=== PATIENT | male | born 1955 | race Caucasian/White ===

== ENCOUNTER 2017-09-13 07:28 | Day surgery (SDC) | payer BC ==
[2017-09-08 11:54] VITALS: BMI 31.7
[2017-09-13] MEDS ORDERED: PROPOFOL 20 ML ONE ×3 (07:30→09:13)
[2017-09-13] MEDS ORDERED: LIDOCAINE HCL/PF 2% SDV 5ML VIAL ONE (07:30)
[2017-09-13 09:45] VITALS: TEMP 98.3
[2017-09-13 09:56] VITALS: BP 121/70; PULSE 74
--- NOTE | 2017-09-14 15:35 | PATH ---
Surgical Pathology Report Patient Name: PEAM RICHARDSON [facility]. Rec. #: [id number] /Age/Gender: 1955 (Age: 62) / M Account: [id number] Location: [facility]-ENDOSCOPY Taken: 09/13/2017 Received: 09/13/2017 Reported: 09/14/2017 Physicians: Caio Cotto M.D. Specimen(s) Received A: BX DUODENUM B: BX ANTRUM Clinical History Preoperative diagnosis: GERD, rule out colon cancer Postoperative diagnoses: Rule out celiac disease, mild gastritis, rule out H. Pylori Final Diagnosis A. DUODENUM, BIOPSY: SMALL BOWEL MUCOSA WITH MILD INCREASE IN INTRAEPITHELIAL LYMPHOCYTES. SEE COMMENT. B. STOMACH, ANTRUM, BIOPSY: GASTRIC ANTRAL MUCOSA WITH MODERATE CHRONIC GASTRITIS. IMMUNOHISTOCHEMICAL STAIN FOR H. PYLORI IS NEGATIVE. Comment: There is mild increase in intraepithelial lymphocytes with preservation of villous architecture. These findings are non-specific, but may be seen in Gluten sensitive enteropathy (Celiac sprue). Suggest clinical and serologic correlation, as clinically warranted. Electronically Signed Geovanna Gomez M.D. Gross Description A. Received in formalin, labeled "duodenum" are 2 ghotra, irregular portions of soft tissue averaging 0.3 cm. in greatest dimension. The specimens are submitted in toto in one cassette. B. Received in formalin, labeled "antrum" are 2 ghotra, irregular portions of soft tissue averaging 0.6 cm. in greatest dimension. The specimens are submitted in toto in one cassette. /09/13/2017 saudi09/13/2017
== END 2017-09-13 09:58 | disposition home or self-care (01) ==
LOC: FASU-ENDO 07:28
PROVIDERS: ATTEND Internal Medicine Gastroenterology
PROC: 0DB68ZX Excision of Stomach, Via Natural or Artificial Opening Endoscopic, Diagnostic (ICD-10-PCS; 2017-09-13)
PROC: 0DJD8ZZ Inspection of Lower Intestinal Tract, Via Natural or Artificial Opening Endoscopic (ICD-10-PCS; principal; 2017-09-13 09:04)
PROC: 0DB98ZX Excision of Duodenum, Via Natural or Artificial Opening Endoscopic, Diagnostic (ICD-10-PCS; 2017-09-13 09:04)
DX: Z12.11 Encounter for screening for malignant neoplasm of colon (principal); K29.50 Unspecified chronic gastritis without bleeding; K57.10 Diverticulosis of small intestine without perforation or abscess without bleeding
CPT/HCPCS: 88305-TC; 88342-TC